=== PATIENT | male | born 1955 | race African-American/Black ===

== ENCOUNTER 2025-07-29 06:07 | Day surgery (SDC) | payer MEDICARE ==
[2025-07-27 15:35] LABS: BASOPHILS % 0.5 % (0.0-1.0); EOSINOPHILS % 3.9 % (0.0-6.0); LYMPHOCYTES % 46.0 % (18.0-39.1); MONOCYTES % 11.5 % (4.4-11.3); NEUTROPHILS % 37.9 % (38.7-80.0); RED CELL DISTRIBUTION WIDTH 13.4 % (11.7-14.4)
[2025-07-27 16:03] LABS: INR 0.95
[2025-07-27 16:11] LABS: CHOL/HDL RATIO 2.6 (3.9-4.7); EST GLOMERULAR FILTRATION RATE 51.0 ML/MIN (>=60); LDL CHOLESTEROL 54.0 MG/DL (60-130)
[2025-07-29] VITALS (12 sets, daily range): BP systolic 133–181; BP diastolic 86–98; PULSE 73–77; RESP 10–18; TEMP 97.5–98.1; O2SAT 98–100
[~2025-07-29] VITALS: Ht 188 cm; Wt 104.9 kg
[~2025-07-29 06:07] MED LIST: ALDACTONE25 MG PO; ASPIRIN81 MG PO; COREG12.5 MG PO; DOXAZOSIN MESYLA2 MG PO; ELIQUIS5 MG PO; ENTRESTO 49 MG1 EACH; FARXIGA10 MG; LASIX20 MG PO; LIPITOR20 MG PO; OMEPRAZOLE40 MG PO; ZETIA10 MG PO
[2025-07-29] MEDS ORDERED: FENTANYL CITRATE/PF 100MCG/2 ML INJ ONE (07:04)
[2025-07-29] MEDS ORDERED: MIDAZOLAM HCL 2 MG/2 ML VIAL ONE (07:04)
[2025-07-29] MEDS ORDERED: HEPARIN SOD/SOD CHLORIDE 2,000 ML ONE (08:24)
[2025-07-29] MEDS ORDERED: LIDOCAINE HCL 2% LOCAL 20 ML VIAL ONE (08:24)
[2025-07-29] MEDS ORDERED: SODIUM CHLORIDE 0.9% 1000ML 1,000 ML ONE (08:54)
[2025-07-29] MEDS ORDERED: IOPAMIDOL 370 MG/ML 100 ML INFUS..BTL INJ ONE (08:55)
[2025-07-29] MEDS ORDERED: VERAPAMIL HCL 2.5 MG/ML 2 ML VIAL ONE (08:55)
== END 2025-07-29 11:20 | disposition home or self-care (01) ==
LOC: CATH LAB 06:07
PROVIDERS: ATTEND Internal Medicine Cardiovascular Disease
DX: I25.10 Atherosclerotic heart disease of native coronary artery without angina pectoris (principal); R94.39 Abnormal result of other cardiovascular function study; I50.22 Chronic systolic (congestive) heart failure; I47.20 Ventricular tachycardia, unspecified; Z95.5 Presence of coronary angioplasty implant and graft; Z71.89 Other specified counseling; Z71.3 Dietary counseling and surveillance; Z01.810 Encounter for preprocedural cardiovascular examination; Z01.812 Encounter for preprocedural laboratory examination; Z01.818 Encounter for other preprocedural examination; Z79.02 Long term (current) use of antithrombotics/antiplatelets; Z79.82 Long term (current) use of aspirin; Z79.899 Other long term (current) drug therapy
CPT/HCPCS: 36415; 71046; 76937; 80048; 80061; 85025; 85610; 85730; 93005; 93458; C1769; C1887 ×2; J2003; J2250; J3010; J7030; Q9967; 93454; 99152; 99153